=== PATIENT | male | born 1940 | race Caucasian/White ===

== ENCOUNTER → 2020-12-28 07:06 | Outpatient (CLI) | payer OTHER, MEDICARE, MEDICAID, SELFPAY ==
--- NOTE | 2020-12-28 07:30 | CT_ITS ---
STUDY: CT ABDOMEN AND PELVIS WITH AND WITHOUT CONTRAST REASON FOR EXAM: Male, 80 years old. RENAL FAILURE. Microscopic hematuria. RADIATION DOSAGE (If Supplied By Facility): CTDIvol = ( 13.76 ) mGy, DLP = ( 2033.59 ) mGycm TECHNIQUE: Transaxial images were obtained from the dome of the diaphragm to the symphysis pubis without oral contrast. IV 100mL Isovue-300 was administered. Sagittal and coronal images were reconstructed. Individualized dose optimization techniques were used for this CT. COMPARISON: None. FINDINGS: The visualized lung bases are unremarkable. Coronary artery calcification. There is 1.2 cm cyst in the dome of the right lobe of the liver. There is geographical fatty infiltration of the right lobe of the liver. There is sparing of the left lobe of the liver as well as the inferior aspect of the right lobe of the liver. There are multiple gallstones. The common bile duct is dilated and measures 1.1 cm. Normal spleen. Normal pancreas. Normal bilateral adrenal glands. Normal right kidney. Normal left kidney. Normal visualized stomach. Normal small intestine. There are multiple colonic diverticula consistent with diverticulosis. The appendix is visualized and appears normal. There is diffuse atherosclerotic calcification of the abdominal aorta and its major visceral branches, without a demonstrated aneurysm. Normal inferior vena cava. Normal retroperitoneum. Mild thickening of the wall of the urinary bladder slightly more prominent along the left lateral wall of the urinary bladder. Inhomogeneous appearance of the prostate. There is a left-sided inguinal hernia containing adipose tissue. There are diffuse degenerative changes of the visualized lumbar spine. Grade 1 anterior listhesis of L5 on S1 with spondylolysis of the pars interarticularis of the L5 vertebrae. CT/CT Abd/Pelvis W/WO Contrast IMPRESSION: Geographical fatty infiltration of the liver more prominent in the right lobe as described. Multiple gallstones. Dilated common bile duct. Sigmoid diverticulosis. Electronically Signed: Lenard Back MD at 9:39 EDT , Service support ,
== END ==
DX: R31.29 Other microscopic hematuria (principal)
CPT/HCPCS: 74178; Q9967